=== PATIENT | male | born 1990 | race Two or more races ===

== ENCOUNTER 2016-11-18 23:29 | Inpatient (IN) | payer MEDICAID ==
[2016-11-18] MEDS ORDERED: NS 2,000 ML IV ONE (23:33)
--- NOTE | 2016-11-18 23:36 | EDPHY ---
H & P HPI/ROS: HPI CHIEF COMPLAINT: Alcohol Intoxication HISTORY OF PRESENT ILLNESS: Patient 26-year-old male brought into the emergency room by EMS with police escort as patient is highly intoxicated with alcohol and became somewhat physically aggressive with EMS. Please make contact with him at the [facility] which is a [facility] house where he was visibly intoxicated. They plan to bring him to the arc however was unable to ambulate. 911 EMS was called the make contact with him they realized that his blood sugar was close to 600. They brought him here to the emergency room. Upon arrival here in emergency room the patient is highly intoxicated alcohol he is unable to participate in exam. He does respond to painful stimuli. Per old ER records patient has a history of every alcohol use, noncompliance with his insulin. Past Medical History: IDDM Past Surgical History: Unknown surgical history Social History: Unknown social history however has been drinking alcohol this evening Family History: Noncontributory ROS REVIEW OF SYSTEMS: A comprehensive 10 point review of systems is otherwise negative aside from elements mentioned in the history of present illness. Exam Constitutional Intoxicated, triage nursing summary reviewed, vital signs reviewed, Sleepy, smells of alcohol Eyes normal conjunctivae and sclera, horizontal beating nystagmus consistent acute alcohol intoxication, otherwise pupils equal and react to light HENT normal inspection, atraumatic, moist mucus membranes, no epistaxis, neck supple/ no meningismus, no raccoon eyes. Respiratory clear to auscultation bilaterally, normal breath sounds, no respiratory distress, no wheezing. Cardiovascular tachycardic, regular rhythm, no murmur, no edema, distal pulses normal. Gastrointestinal soft, non-tender, no rebound, no guarding, normal bowel sounds, no distension, no pulsatile mass. Genitourinary no CVA tenderness. Musculoskeletal no midline vertebral tenderness, full range of motion, no calf swelling, no tenderness of extremities, no meningismus, good pulses, neurovascularly intact. Skin pink, warm, & dry, no rash, skin atraumatic. Neurologic sleepy, intoxicated with alcohol,, alert and oriented x 3, AAOx3, moves all 4 extremities equally, motor intact, sensory intact, CN II-XII intact , , normal vision, normal speech. Psychiatric normal mood/affect. Heme/Lymph/Immune no lymphadenopathy. 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 Re-evaluation: Critical Care: Total Critical Care Time Spent Managing this Patient: 65 Minutes. This time was spent Exclusively with this patient. This Care was exclusive of procedures. The Organ System/life at risk was metabolic This Patient was in Critical Condition because in DKA, dehydration, alcohol intoxication 0105AM: Patient is waking up. Somnolent. Insulin drip has been placed. 1 unit/kilogram per hour. He weighs 131 kg or 290 lb. Patient be placed to 10 units an hour. Patient received 2 L of fluid. 3rd L normal saline ordered. 0146AM: Spoke with Dr. Sigala agrees to admit this patient to the hospitalist service. ICU admission. Reason for admission DKA. Reason for DKA medication noncompliance. Insulin noncompliance. Alcoholism. 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 - Social History Smoking Status: Current some day smoker Constitutional: Initial Vital Signs Temperature (C) 37.2 C 11/18/16 23:54 Heart Rate 144 H 11/18/16 23:54 Respiratory Rate 20 11/18/16 23:54 Blood Pressure 121/58 H 11/18/16 23:54 O2 Sat (%) 94 11/18/16 23:54 O2 Delivery Mode Nasal Cannula O2 (L/minute) 2 Allergies/Adverse Reactions: No Known Allergies Allergy (Unverified 11/18/16 23:54) Home Medications: Medication Instructions Recorded Insulin Regular, Human 12/29/15 metFORMIN HCL [Metformin HCl] 500 mg PO DAILY #30 tablet 12/29/15 Medical Decision Making - Data Points Laboratory Results: Laboratory Results 11/18/16 23:35 11/18/16 23:35 11/19/16 11/19/16 11/18/16 01:23 00:40 23:35 WBC RBC Hgb Hct MCV MCH MCHC RDW Plt Count MPV Neut % (Auto) Lymph % (Auto) [place] % (Auto) Eos % (Auto) Baso % (Auto) Nucleat RBC Rel Count Absolute Neuts (auto) Absolute Lymphs (auto) Absolute Monos (auto) Absolute Eos (auto) Absolute Basos (auto) Absolute Nucleated RBC Immature Gran % Immature Gran # Puncture Site LEFT RADIAL Patient Temperature 37.0 DEGREES DEGREES pCO2 32 mmHg L mmHg (34-38) pO2 86 mmHg H mmHg (65-75) Total CO2 17 mEq/L L mEq/L (23-27) ABG pH 7.32 L (7.35-7.45) ABG O2 Saturation 94 % % (92-95) ABG Base Excess -8.5 mEq/L L mEq/L (-2.5-2.5) ABG Lactic Acid 6.1 mmol/L H mmol/L (0.5-1.6) Total O2 Concentration 3.0 LITERS LITERS Sodium Potassium Chloride Carbon Dioxide Bicarbonate 16 mEq/L L mEq/L (22-26) Anion Gap BUN Creatinine Estimated GFR Glucose Calcium Phosphorus Magnesium Total Bilirubin 0.6 mg/dL mg/dL (0.1-1.4) Conjugated Bilirubin 0.5 mg/dL mg/dL (0.0-0.5) Unconjugated Bilirubin 0.1 mg/dL mg/dL (0.0-1.1) AST 27 IU/L IU/L (17-59) ALT 35 IU/L IU/L (21-72) Alkaline Phosphatase 139 IU/L H IU/L (38-126) Total Protein 8.8 g/dL H g/dL (6.3-8.2) Albumin 4.7 g/dL g/dL (3.5-5.0) Beta-Hydroxybutyrate Urine Color Pending Urine Appearance Pending Urine pH Pending Ur Specific Crestline Pending Urine Protein Pending Urine Ketones Pending Urine Blood Pending Urine Nitrate Pending Urine Bilirubin Pending Urine Urobilinogen Pending Ur Leukocyte Esterase Pending Ur Culture Indicated? Pending Urine Glucose Pending Ethyl Alcohol 11/18/16 11/18/16 11/18/16 23:35 23:35 23:33 WBC 7.66 10^3/uL 10^3/uL (3.80-9.50) RBC 5.68 10^6/uL 10^6/uL (4.40-6.38) Hgb 16.8 g/dL g/dL (13.7-17.5) Hct 47.7 % % (40.0-51.0) MCV 84.0 fL fL (81.5-99.8) MCH 29.6 pg pg (27.9-34.1) MCHC 35.2 g/dL g/dL (32.4-36.7) RDW 13.0 % % (11.5-15.2) Plt Count 168 10^3/uL 10^3/uL (150-400) MPV 10.9 fL fL (8.7-11.7) Neut % (Auto) 61.9 % % (39.3-74.2) Lymph % (Auto) 32.0 % % (15.0-45.0) Raleigh % (Auto) 4.4 % L % (4.5-13.0) Eos % (Auto) 0.5 % L % (0.6-7.6) Baso % (Auto) 0.5 % % (0.3-1.7) Nucleat RBC Rel Count 0.0 % % (0.0-0.2) Absolute Neuts (auto) 4.74 10^3/uL 10^3/uL (1.70-6.50) Absolute Lymphs (auto) 2.45 10^3/uL 10^3/uL (1.00-3.00) Absolute Monos (auto) 0.34 10^3/uL 10^3/uL (0.30-0.80) Absolute Eos (auto) 0.04 10^3/uL 10^3/uL (0.03-0.40) Absolute Basos (auto) 0.04 10^3/uL 10^3/uL (0.02-0.10) Absolute Nucleated RBC 0.00 10^3/uL 10^3/uL (0-0.01) Immature Gran % 0.7 % % (0.0-1.1) Immature Gran # 0.05 10^3/uL 10^3/uL (0.00-0.10) Puncture Site Patient Temperature pCO2 pO2 Total CO2 ABG pH ABG O2 Saturation ABG Base Excess ABG Lactic Acid Total O2 Concentration Sodium 145 mEq/L H mEq/L (134-144) Potassium 3.8 mEq/L mEq/L (3.5-5.2) Chloride 102 mEq/L mEq/L (97-110) Carbon Dioxide 16 mEq/l L mEq/l (22-31) Bicarbonate Anion Gap 27 mEq/L H mEq/L (8-16) BUN 5 mg/dL L mg/dL (7-23) Creatinine 0.6 mg/dL L mg/dL (0.7-1.3) Estimated GFR > 60 Glucose 596 mg/dL H* mg/dL (70-100) Calcium 9.3 mg/dL mg/dL (8.5-10.4) Phosphorus 4.2 mg/dL mg/dL (2.5-4.5) Magnesium 2.0 mg/dL mg/dL (1.6-2.3) Total Bilirubin Conjugated Bilirubin Unconjugated Bilirubin AST ALT Alkaline Phosphatase Total Protein Albumin Beta-Hydroxybutyrate 0.76 mmol/L H mmol/L (0.02-0.27) Urine Color Urine Appearance Urine pH Ur Specific Crestline Urine Protein Urine Ketones Urine Blood Urine Nitrate Urine Bilirubin Urine Urobilinogen Ur Leukocyte Esterase Ur Culture Indicated? Urine Glucose Ethyl Alcohol 486 mg/dL H* mg/dL (0-10) Medications Given: Discontinued Medications Sodium Chloride (Ns) 2,000 mls @ 0 mls/hr IV ONCE ONE PRN Reason: Wide Open Stop: 11/18/16 23:34 Last Admin: 11/18/16 23:45 Dose: 2,000 mls Sodium Chloride (Ns) 1,000 mls @ 0 mls/hr IV ONCE ONE PRN Reason: Wide Open Stop: 11/19/16 00:54 Last Admin: 11/19/16 01:10 Dose: 1,000 mls Departure - Departure Disposition: [facility] Inpatient Acute Clinical Impression: Alcoholic intoxication Qualifiers: Complication of substance-induced condition: uncomplicated Qualified Code(s): F10.120 - Alcohol abuse with intoxication, uncomplicated DKA (diabetic ketoacidoses) Qualifiers: Diabetes mellitus type: other specified (including DARIUSZ) Diabetes mellitus complication detail: without coma Qualified Code(s): E13.10 - Other specified diabetes mellitus with ketoacidosis without coma Condition: Good
[2016-11-18 23:45] LABS: % IMMATURE GRANULYOCYTES 0.7 % (0.0-1.1); ABSOLUTE IMMATURE GRANULOCYTES 0.05 10^3/uL (0.00-0.10); ADD DIFF? NO; ADD MORPH? NO; ADD SCAN? NO; ATYPICAL LYMPHOCYTE FLAG 10 (0-99); FRAGMENT RBC FLAG 0 (0-99); HEMATOCRIT 47.7 % (40.0-51.0); HEMOGLOBIN 16.8 g/dL (13.7-17.5); LEFT SHIFT FLG 10 (0-99); LIPEMIA HEMOLYSIS FLAG 90 (0-99); MEAN CELL HEMOGLOBIN 29.6 pg (27.9-34.1); MEAN CELL HEMOGLOBIN CONCENTR. 35.2 g/dL (32.4-36.7); MEAN PLATELET VOLUME 10.9 fL (8.7-11.7); PLATELET CLUMPS FLAG 20 (0-99); PLATELET COUNT 168 10^3/uL (150-400); RED BLOOD CELL COUNT 5.68 10^6/uL (4.40-6.38)
[2016-11-19 00:01] LABS: ANION GAP 27 mEq/L (8-16); CALCIUM 9.3 mg/dL (8.5-10.4); CARBON DIOXIDE 16 mEq/l (22-31); CHLORIDE 102 mEq/L (97-110); CREATININE 0.6 mg/dL (0.7-1.3); GLOMERULAR FILTRATION RATE > 60; POTASSIUM 3.8 mEq/L (3.5-5.2); SODIUM 145 mEq/L (134-144)
[2016-11-19 00:10] LABS: ETHANOL SERUM 486 mg/dL (0-10); GLUCOSE 596 mg/dL (70-100)
[2016-11-19] MEDS ORDERED: INSULIN REGULAR HUMAN 100 UNIT, COSIGN. REQUIRED 1 EA in NS 100 ML IV ONE (00:19)
[2016-11-19 00:51] LABS: B-HYDROXYBUTYRATE 0.76 mmol/L (0.02-0.27)
[2016-11-19 00:52] LABS: BASE EXCESS -8.5 mEq/L (-2.5-2.5); BICARBONATE 16 mEq/L (22-26); MEASURED OXYGEN SATURATION 94 % (92-95); PCO2 32 mmHg (34-38); PO2 86 mmHg (65-75); TCO2 17 mEq/L (23-27)
[2016-11-19] MEDS ORDERED: NS 1,000 ML IV ONE (00:53)
[2016-11-19 01:01] LABS: ALBUMIN 4.7 g/dL (3.5-5.0); BILIRUBIN,TOTAL 0.6 mg/dL (0.1-1.4); BILIRUBIN-CONJUGATED 0.5 mg/dL (0.0-0.5); BILIRUBIN-UNCONJUGATED 0.1 mg/dL (0.0-1.1); TOTAL PROTEIN 8.8 g/dL (6.3-8.2)
[2016-11-19 01:46] LABS: COLOR PALE YELLOW; LEUKOCYTE ESTERASE,URINE NEGATIVE (NEGATIVE); NITRITE,URINE NEGATIVE (NEGATIVE)
[2016-11-19] MEDS ORDERED: chlordiazePOXIDE 25 MG CAP PO PRN (01:58)
[2016-11-19] MEDS ORDERED: LORazepam 2 MG/ML INJ IVP PRN (01:58)
[2016-11-19] MEDS ORDERED: INSULIN REGULAR HUMAN 100 UNIT in NS 100 ML IV SCH ×2 (02:00→09:19)
[2016-11-19] MEDS ORDERED: PROTOCOL POTASSIUM 1 DOSE MISC PRN ×2 (02:02→05:56)
[2016-11-19] MEDS ORDERED: NS W/ 20 KCl/L 1,000 ML IV SCH (02:15)
[2016-11-19] MEDS: THIAMINE HCL 500 MG in NS 100 ML IV SCH (03:23)
--- NOTE | 2016-11-19 03:42 | GHP ---
[f rep st] HISTORY AND PHYSICAL DATE OF ADMISSION: 11/19/2016 CHIEF COMPLAINT: Intoxication. HISTORY: The patient is a 26-year-old male who was brought in by EMS and police escort very intoxic ated and physically aggressive. He was at the [facility] and was unable to ambulate so 911 was ca lled. They found his blood glucose to be 600. The patient was somnolent and obtunded in the emerge ncy room, but now upon arrival to ICU is awake and conversive with a relatively normal mental status . He tells me he is on metformin only, and denies any noncompliance. He does not check his blood g lucose at home, however. He drank 3 pints of alcohol in the last 24 hours. This is the 1st time he has drank in the last 6 months. His father is in [facility], and he had heard that his father had pass ed away and so he freaked out and started drinking again. His dad is actually alive and well. His last alcoholic beverage was 2 hours ago. He has been on insulin in the past; however, he successful ly lost weight and was able to come off it and go to metformin alone. Over the last couple years, radha quiroz, he has gained all the weight back. PAST MEDICAL HISTORY: Diabetes type 2. MEDICATIONS: Please see computer record for full detailed list. ALLERGIES: No known drug allergies. SOCIAL HISTORY: He smokes 10 cigarettes per day and has been clean of alcohol for [address] 24 hours. He does have a history of heavy alcohol in the past. 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 REVIEW OF SYSTEMS: Complete review of systems obtained. Review of systems is negative regarding co nstitutional, HEENT, GI, pulmonary, cardiovascular, , hematology, musculoskeletal, endocrine, psyc h except for positives as in HPI. FAMILY HISTORY: Positive for "every one has diabetes." PHYSICAL EXAMINATION: GENERAL: Well-developed, well-nourished male, in no acute distress. VITAL S IGNS: Temperature is 37.2, pulse 144, blood pressure 123/63, saturating 94% on 3 L. EYE EXAMINATIO N: Normal conjunctivae, pupils equal and react to light. ENT: Normal ears and nose. Hearing inta ct. Normal lips and teeth. Oropharynx moist. NECK: Trachea midline. No thyromegaly. CHEST: __ . LUNGS: Clear to auscultation bilaterally. CARDIOVASCULAR: Regular rate and rhythm. No murmur. No lower extremity edema. ABDOMEN: Soft, nontender. No hepatosplenomegaly. SKIN: Warm , dry, intact. No rash. MUSCULOSKELETAL: No cyanosis or clubbing. Strength 5/5 upper and lower e xtremities. NEUROLOGIC: Cranial nerves intact. Normal sensation to light touch. PSYCH: Alert an d oriented x3. Normal mood and affect. Normal judgment. Normal memory. He really has a very norm al mental status at this time. LABORATORY DATA: White count 7.66, hematocrit 47.7, platelets 168, sodium 145, potassium 3.8, chlor musa 102, bicarb 16, anion gap is 27, BUN 5, creatinine 0.6, glucose 596. LFTs are normal. Alcohol level is 486. ASSESSMENT/PLAN: 1. Diabetic ketoacidosis. I think this is due to a combination of his weight gain, poor outpatient monitoring, alcohol use, and poor compliance. I do not think he has any evidence of infection. He will be treated with IV insulin drip per diabetic ketoacidosis protocol, aggressive IV fluids, and serial labs. Will check a hemoglobin A1c. I think he is going to need to go back to insulin at dis charge. 2. Alcohol intoxication. 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 Will administer daily IV thiamine, place him on a CIWA pro tocol, and watch for withdrawal problem. 3. Morbid obesity. We need to calculate his BMI, but based on his clinical presentation is clearly greater than 40. Weight loss is imperative for his long-term health. 4. Tobacco dependence. Will offer nicotine patch. CODE STATUS: Full. ADMISSION STATUS: 1. Will admit to inpatient as he is critically ill. Anticipate greater than 2 midnights. 2. DVT prophylaxis. Will administer subcu Lovenox daily. /[id number]/MODL
[2016-11-19 04:34] LABS: ANION GAP 17 mEq/L (8-16); CALCIUM 7.9 mg/dL (8.5-10.4); CARBON DIOXIDE 21 mEq/l (22-31); CHLORIDE 108 mEq/L (97-110); CREATININE 0.4 mg/dL (0.7-1.3); GLOMERULAR FILTRATION RATE > 60; GLUCOSE 206 mg/dL (70-100); POTASSIUM 2.9 mEq/L (3.5-5.2); SODIUM 146 mEq/L (134-144)
[2016-11-19 04:37] LABS: % IMMATURE GRANULYOCYTES 0.7 % (0.0-1.1); ABSOLUTE IMMATURE GRANULOCYTES 0.05 10^3/uL (0.00-0.10); ADD DIFF? NO; ADD MORPH? NO; ADD SCAN? NO; ATYPICAL LYMPHOCYTE FLAG 0 (0-99); FRAGMENT RBC FLAG 0 (0-99); HEMATOCRIT 40.6 % (40.0-51.0); HEMOGLOBIN 14.4 g/dL (13.7-17.5); LEFT SHIFT FLG 10 (0-99); LIPEMIA HEMOLYSIS FLAG 90 (0-99); MEAN CELL HEMOGLOBIN 29.8 pg (27.9-34.1); MEAN CELL HEMOGLOBIN CONCENTR. 35.5 g/dL (32.4-36.7); MEAN CELL VOLUME 84.1 fL (81.5-99.8); PLATELET CLUMPS FLAG 0 (0-99); PLATELET COUNT 126 10^3/uL (150-400); RED BLOOD CELL COUNT 4.83 10^6/uL (4.40-6.38); RED CELL DISTRIBUTION WIDTH 12.8 % (11.5-15.2)
[2016-11-19] MEDS ORDERED: POTASSIUM Cl (KCl) 100 ML IV SCH (05:54)
[2016-11-19] MEDS ORDERED: POTASSIUM CL 20 MEQ TAB PO ONE (05:57)
[2016-11-19] MEDS: D50W 25 GM/50 ML SYR IVP PRN ×2 (08:00→09:40)
[2016-11-19] MEDS ORDERED: D50W 25 GM/50 ML SYR IVP ONE (08:08)
[2016-11-19] MEDS ORDERED: ENOXAPARIN 40 MG/0.4 ML SYR SC SCH (09:00)
[2016-11-19] MEDS ORDERED: INSULIN REGULAR HUMAN 100 UNIT/ML IVP PRN (09:19)
[2016-11-19 10:03] LABS: ANION GAP 13 mEq/L (8-16); CALCIUM 6.5 mg/dL (8.5-10.4); CARBON DIOXIDE 18 mEq/l (22-31); CHLORIDE 116 mEq/L (97-110); CREATININE 0.3 mg/dL (0.7-1.3); GLOMERULAR FILTRATION RATE > 60; GLUCOSE 142 mg/dL (70-100); POTASSIUM 2.8 mEq/L (3.5-5.2); SODIUM 147 mEq/L (134-144)
[2016-11-19 11:28] LABS: ANION GAP 11 mEq/L (8-16); CARBON DIOXIDE 18 mEq/l (22-31); CHLORIDE 116 mEq/L (97-110); CREATININE 0.4 mg/dL (0.7-1.3); GLOMERULAR FILTRATION RATE > 60; GLUCOSE 153 mg/dL (70-100); MAGNESIUM 1.3 mg/dL (1.6-2.3); POTASSIUM 2.8 mEq/L (3.5-5.2); SODIUM 145 mEq/L (134-144)
[2016-11-19] MEDS: NICOTINE 14 MG/24 HR PATCH TD SCH (11:51)
[2016-11-19] MEDS: POTASSIUM Cl (KCl) 100 ML IV SCH ×4 (12:22→16:30)
[2016-11-19] MEDS ORDERED: MAGNESIUM SULF 2 GM/WATER 50 ML IV ONE (12:49)
[2016-11-19] MEDS ORDERED: D50W 25 GM/50 ML SYR IVP PRN (14:12)
[2016-11-19] MEDS: INSULIN GLARGINE 100 UNITS/ML SYRINGE SC SCH (14:43)
--- NOTE | 2016-11-19 16:01 | HOSPPROG ---
Hospitalist Progress Note Assessment/Plan: * type 2 diabetes with early DKA * gap is closed although has a mild hyperchloremic acidosis * will discontinue insulin drip * start diet * start Lantus * had been on insulin for a while and then metformin but has not been taking medications for last several months * hemoglobin A1c A1c is still pending but suspect he will need to be on insulin on discharge * history of alcohol abuse * had been sober for 6 months until yesterday * hypokalemia and hypomagnesemia * replete Subjective: feels okay. No new complaints Objective: Vital Signs Temp Pulse Resp BP Pulse Ox 37.2 C 96 14 150/97 H 93 11/18/16 23:54 11/19/16 13:00 11/19/16 13:00 11/19/16 13:00 11/19/16 13:00 Laboratory Results 11/19/16 04:10 11/19/16 10:40 11/18/16 11/19/16 11/20/16 05:59 05:59 05:59 Intake Total 3216.2 Output Total 600 Balance 3216.2 -600 - Physical Exam Constitutional: no apparent distress, appears nourished, not in pain Eyes: anicteric sclera, EOMI Ears, Nose, Mouth, Throat: moist mucous membranes, hearing normal Cardiovascular: regular rate and rhythym, no murmur, rub, or gallop Respiratory: no respiratory distress, no rales or rhonchi, clear to auscultation Gastrointestinal: normoactive bowel sounds, soft, non-tender abdomen, no palpable masses Skin: warm Neurologic: AAOx3 Psychiatric: interacting appropriately, not anxious, not encephalopathic, thought process linear ICD10 Worksheet Patient Problems: Problems Problem Status Onset Alcoholic intoxication Acute DKA (diabetic ketoacidoses) Acute
[2016-11-19] MEDS: INSULIN LISPRO 100 UNIT/ML SC SCH (17:27)
[2016-11-19 18:50] LABS: HEMOGLOBIN A1C 10.8 % (4.0-6.0)
[2016-11-19] MEDS: ENOXAPARIN 40 MG/0.4 ML SYR SC SCH (21:36)
[2016-11-20 06:09] LABS: % IMMATURE GRANULYOCYTES 0.5 % (0.0-1.1); ABSOLUTE IMMATURE GRANULOCYTES 0.03 10^3/uL (0.00-0.10); ADD DIFF? NO; ADD MORPH? NO; ADD SCAN? NO; ATYPICAL LYMPHOCYTE FLAG 10 (0-99); FRAGMENT RBC FLAG 0 (0-99); HEMOGLOBIN 12.8 g/dL (13.7-17.5); LEFT SHIFT FLG 0 (0-99); LIPEMIA HEMOLYSIS FLAG 90 (0-99); MEAN CELL HEMOGLOBIN 29.5 pg (27.9-34.1); MEAN CELL HEMOGLOBIN CONCENTR. 34.6 g/dL (32.4-36.7); MEAN CELL VOLUME 85.3 fL (81.5-99.8); MEAN PLATELET VOLUME 10.8 fL (8.7-11.7); PLATELET CLUMPS FLAG 20 (0-99); PLATELET COUNT 89 10^3/uL (150-400); RED BLOOD CELL COUNT 4.34 10^6/uL (4.40-6.38); RED CELL DISTRIBUTION WIDTH 12.9 % (11.5-15.2)
[2016-11-20 06:28] LABS: ANION GAP 7 mEq/L (8-16); CALCIUM 7.5 mg/dL (8.5-10.4); CARBON DIOXIDE 26 mEq/l (22-31); CHLORIDE 104 mEq/L (97-110); CREATININE 0.4 mg/dL (0.7-1.3); GLOMERULAR FILTRATION RATE > 60; GLUCOSE 154 mg/dL (70-100); MAGNESIUM 1.8 mg/dL (1.6-2.3); POTASSIUM 4.3 mEq/L (3.5-5.2); SODIUM 137 mEq/L (134-144)
[2016-11-20 07:38] VITALS: RESP 18
[2016-11-20] MEDS: ENOXAPARIN 40 MG/0.4 ML SYR SC SCH (08:53)
[2016-11-20] MEDS: THIAMINE HCL 500 MG in NS 100 ML IV SCH (08:53)
[2016-11-20] MEDS: INSULIN LISPRO 100 UNIT/ML SC SCH ×2 (08:53→11:40)
[2016-11-20] MEDS: INSULIN GLARGINE 100 UNITS/ML SYRINGE SC SCH (08:53)
[2016-11-20] MEDS: NICOTINE 14 MG/24 HR PATCH TD SCH (09:41)
--- NOTE | 2016-11-20 11:03 | HOSPPROG ---
Hospitalist Progress Note Assessment/Plan: 26 yo M w dm, recrudescence of alcoholism home today in insulin therapy see dc summary > 30 minutes on dc Subjective: gap closed. eating. amenable to insulin Objective: Vital Signs Temp Pulse Resp BP Pulse Ox 36.5 C 79 18 149/100 H 95 11/20/16 07:37 11/20/16 07:37 11/20/16 07:37 11/20/16 07:37 11/20/16 07:37 Laboratory Results 11/20/16 05:43 11/20/16 05:43 11/19/16 11/20/16 11/21/16 05:59 05:59 05:59 Intake Total 3216.2 2544.4 Output Total 1999 Balance 3216.2 544.4 - Physical Exam Constitutional: no apparent distress, appears nourished Eyes: PERRL, anicteric sclera Cardiovascular: regular rate and rhythym, no murmur, rub, or gallop Respiratory: no respiratory distress, no rales or rhonchi Gastrointestinal: normoactive bowel sounds, soft, non-tender abdomen Genitourinary: No azul in urethra Skin: warm Musculoskeletal: full muscle strength ICD10 Worksheet Patient Problems: Problems Problem Status Onset Alcoholic intoxication Acute DKA (diabetic ketoacidoses) Acute
[2016-11-20 11:29] VITALS: BP 151/96; PULSE 87; TEMP 97.4; O2SAT 98
--- NOTE | 2016-11-20 11:35 | GDS ---
[f rep st] DISCHARGE SUMMARY DISCHARGE DIAGNOSES: 1. Relapse of alcoholism. 2. Poorly controlled diabetes. 3. Mild diabetic ketoacidosis versus alcoholic ketoacidosis. HOSPITAL COURSE: Please see admission history and physical by Dr. Macy Sigala. The patient pres ented with intoxication, poor responsiveness. He had elevated blood alcohol level of 46. He is als o very hyperglycemic on presentation of 596 with a modestly elevated beta hydroxybutyrate level. He had a modest anion gap. He was started on an insulin drip, his anion gap closed. He was started o n Lantus therapy at 15 units. He is discharged today on Lantus 15 units with 5 units before dinner. It sounds like he really only eats 1 meal a day. I would recommend discontinuing his metformin. He did not have any evidence of alcohol withdrawal while here. Hemoglobin A1c was 10.8. /[id number]/MODL
[2016-11-22] MEDS ORDERED: THIAMINE HCL 100 MG TAB PO SCH (09:00)
== END 2016-11-20 13:00 | disposition home or self-care (01) | DRG 638 ==
LOC: EDUNIT# → F2N 11-19 01:52
PROVIDERS: ADMIT Internal Medicine; ATTEND Internal Medicine
PROC: HZ2ZZZZ Detoxification Services for Substance Abuse Treatment (ICD-10-PCS; principal; 2016-11-19)
DX: E13.10 Other specified diabetes mellitus with ketoacidosis without coma (principal); E87.2 Acidosis; F10.120 Alcohol abuse with intoxication, uncomplicated; Y90.8 Blood alcohol level of 240 mg/100 ml or more; E87.6 Hypokalemia; E83.42 Hypomagnesemia; F17.210 Nicotine dependence, cigarettes, uncomplicated; E66.01 Morbid (severe) obesity due to excess calories; Z68.41 Body mass index [BMI] 40.0-44.9, adult
CPT/HCPCS: 82947-QW; 96365; G0480; J1650; J1815; J3411